=== PATIENT | female | born 1930 | race Caucasian/White ===

== ENCOUNTER 2018-08-17 10:57 | Inpatient (IN) | payer BC, OTHER ==
--- NOTE | 2018-08-17 11:23 | ED Physician Chart ---
ED Chief Complaint/HPI - Patient Information Date Seen:: 08/17/18 Time Seen:: 11:10 Chief Complaint:: Abdominal pain for 3 days. History of Present Illness:: Brought in by [id number] Justine because of abdominal pain for about 3 days. Pt is Citizen [place] speaking. Interpretation is provided by my nurse Cullen. Abdominal pain is characterized as constant, sharp and localized at RUQ. Pain can be aggravated with food ingestion. No fever. Pt had transient N/V yesterday with vomitus consists of gastric content. No hematemesis. Last BM yesterday morning that was slightly loose. No hematochezia or melena. No gross hematuria, dysuria,urinary frequency or urgency. No vaginal bleeding or discharge. Allergies:: Allergies Allergy/AdvReac Type Severity Reaction Status Date / Time No Known Allergies Allergy Verified 08/17/18 11:05 Vitals:: Vital Signs - 8 hr 08/17/18 10:57 Temp 97.2 F HR 82 RR 16 BP 118/43 O2 Sat % 98 Historian:: Patient Family MD/PCP:: Dr. Chase LMP:: Postmenopausal. Review:: Nurse's Note Reviewed ED Review of Systems - Review of Systems General/Constitutional: No fever, No chills, No weight loss, No weakness, No edema, No loss of appetite Skin: No rash, No bruising Head: No headache, No light-headedness Eyes: No loss of vision, No pain, No diplopia ENT: No nasal drainage, No sore throat Neck: No neck pain, No swelling, No stiffness Cardio Vascular: No chest pain Pulmonary: No SOB, No cough, No wheezing GI: Vomiting (transient), No diarrhea, Pain, No melena, No hematochezia, No constipation, No hematemesis G/U: No dysuria, No frequency, No hematuria Nanotechnology Engineering Technologist: No abnormal vaginal bleed Musculoskeletal: No bone or joint pain Endocrine: No polydipsia Psychiatric: No prior psych history Hematopoietic: No bruising, No lymphadenopathy Allergic/Immuno: No urticaria, No angioedema Neurological: No syncope, No focal symptoms, No weakness, No paresthesia, No headache ED Past Medical History - Past Medical History Past Medical History: HTN Social History: Non Smoker, No Alcohol, No Drug Use, , Other (lives with her son.) Employment:: Retired. Surgical History: None Psychiatricy History: None Medication: Reviewed Family Medical History - Family Member Mother History Unknown: Yes ED Physical Exam - Physical Examination General/Constitutional: Awake, Well-developed, well-nourished, Alert Other Gen/Cons comments:: Breathes comfortably, speaks clearly, but is in significant abdominal pain. Head: Atraumatic Eyes: Lids, conjuctiva normal, PERRL, EOMI Other Eyes comments:: anicteric sclera. Skin: Nl inspection, No ecchymosis, No lymphadenopathy ENMT: External ears, nose nl, Nasal exam nl, Oropharynx nl Neck: Nontender, Full ROM w/o pain, No JVD, No nuchal rigidity, No mass Respiratory: Nl effort/Exclusion, Clear to Auscultation Cardio Vascular: RRR, No murmur, gallop, rubs GI: No organomegaly, Normal BS's, Nondistended, No mass/bruits, No McBurney tenderness Other GI comments:: Obese but soft. Tenderness to palpation at RUQ. No R/G. +/- Dunlap's sign. Negative [place]'s and [place]'s signs. : No CVA tenderness Extremities: No edema Neuro/Psych: Alert/oriented, No focal deficits ED Labs/Radiology/EKG Results - Lab Results Results: Laboratory Tests 08/17/18 08/17/18 08/17/18 11:10 11:30 11:30 WBC 18.3 H RBC 4.47 Hgb 13.1 Hct 38.8 L MCV 86.8 MCH 29.3 MCHC Differential 33.7 RDW 12.7 Plt Count 248 MPV 7.0 Add Manual Diff YES PT 12.6 H INR 1.22 PTT (Actin FS) 28.3 Sodium Potassium Chloride Carbon Dioxide Anion Gap BUN Creatinine Est GFR ( Amer) Est GFR (Non-Af Amer) BUN/Creatinine Ratio Glucose Whole Bld Lactic Acid Calcium Total Bilirubin AST ALT Alkaline Phosphatase Total Protein Albumin Globulin Albumin/Globulin Ratio Amylase Lipase Urine Source CLEAN C Urine Color YELLOW Urine Clarity SLIGHT CLOUDY H Urine pH 5.5 Ur Specific [place] 1.025 Urine Protein TRACE Urine Glucose (UA) NEGATIVE Urine Ketones TRACE Urine Blood TRACE Urine Nitrate NEGATIVE Urine Bilirubin SMALL H Urine Urobilinogen 1.0 Ur Leukocyte Esterase SMALL H Urine RBC 0-2 Urine WBC 10-25 H Ur Epithelial Cells FEW Urine Bacteria 3+ H 08/17/18 08/17/18 11:30 11:40 WBC RBC Hgb Hct MCV MCH MCHC Differential RDW Plt Count MPV Add Manual Diff PT INR PTT (Actin FS) Sodium 133 L Potassium 3.0 L Chloride 97 L Carbon Dioxide 23.8 Anion Gap 15.2 BUN 38 H Creatinine 1.4 H Est GFR ( Amer) TNP Est GFR (Non-Af Amer) TNP BUN/Creatinine Ratio 27.1 Glucose 118 H Whole Bld Lactic Acid 3.95 H* Calcium 9.2 Total Bilirubin 1.0 AST 18 ALT 8 Alkaline Phosphatase 76 Total Protein 6.4 Albumin 3.7 Globulin 2.7 Albumin/Globulin Ratio 1.4 Amylase 20 L Lipase 3 L Urine Source Urine Color Urine Clarity Urine pH Ur Specific [place] Urine Protein Urine Glucose (UA) Urine Ketones Urine Blood Urine Nitrate Urine Bilirubin Urine Urobilinogen Ur Leukocyte Esterase Urine RBC Urine WBC Ur Epithelial Cells Urine Bacteria Laboratory Last Values WBC 18.3 Th/cmm (4.8-10.8) H 08/17/18 11:30 RBC 4.47 Mil/cmm (3.80-5.20) 08/17/18 11:30 Hgb 13.1 gm/dL (12-16) 08/17/18 11:30 Hct 38.8 % (41.0-60) L 08/17/18 11:30 MCV 86.8 fl (81-100) 08/17/18 11:30 MCH 29.3 pg (27.0-31.0) 08/17/18 11:30 MCHC Differential 33.7 pg (28.0-36.0) 08/17/18 11:30 RDW 12.7 % (11.5-20.0) 08/17/18 11:30 Plt Count 248 Th/cmm (150-400) 08/17/18 11:30 MPV 7.0 fl 08/17/18 11:30 Add Manual Diff YES 08/17/18 11:30 Band Neutrophils % 1 % (0-10) 08/17/18 11:30 Neutrophils (Manual) 90 % (40-80) H 08/17/18 11:30 Lymphocytes 7 % (20-50) L 08/17/18 11:30 Monocytes 2 % (2-10) 08/17/18 11:30 PT 12.6 SECONDS (9.5-11.5) H 08/17/18 11:30 INR 1.22 (0.5-1.4) 08/17/18 11:30 PTT (Actin FS) 28.3 SECONDS (26.0-38.0) 08/17/18 11:30 Sodium 133 mEq/L (136-145) L 08/17/18 11:30 Potassium 3.0 mEq/L (3.5-5.1) L 08/17/18 11:30 Chloride 97 mEq/L (98-107) L 08/17/18 11:30 Carbon Dioxide 23.8 mEq/L (21.0-31.0) 08/17/18 11:30 Anion Gap 15.2 (7.0-16.0) 08/17/18 11:30 BUN 38 mg/dL (7-25) H 08/17/18 11:30 Creatinine 1.4 mg/dL (0.6-1.2) H 08/17/18 11:30 Est GFR ( Amer) TNP 08/17/18 11:30 Est GFR (Non-Af Amer) TNP 08/17/18 11:30 BUN/Creatinine Ratio 27.1 08/17/18 11:30 Glucose 118 mg/dL (70-105) H 08/17/18 11:30 Whole Bld Lactic Acid 3.95 mmol/L (0.60-1.99) H* 08/17/18 11:40 Calcium 9.2 mg/dL (8.6-10.3) 08/17/18 11:30 Magnesium 2.0 mg/dL (1.9-2.7) 08/17/18 11:30 Total Bilirubin 1.0 mg/dL (0.3-1.0) 08/17/18 11:30 AST 18 U/L (13-39) 08/17/18 11:30 ALT 8 U/L (7-52) 08/17/18 11:30 Alkaline Phosphatase 76 U/L (34-104) 08/17/18 11:30 Total Protein 6.4 gm/dL (6.0-8.3) 08/17/18 11:30 Albumin 3.7 gm/dL (3.7-5.3) 08/17/18 11:30 Globulin 2.7 gm/dL 08/17/18 11:30 Albumin/Globulin Ratio 1.4 (1.0-1.8) 08/17/18 11:30 Amylase 20 U/L (29-103) L 08/17/18 11:30 Lipase 3 U/L (11-82) L 08/17/18 11:30 Urine Source CLEAN C 08/17/18 11:10 Urine Color YELLOW 08/17/18 11:10 Urine Clarity SLIGHT CLOUDY (CLEAR) H 08/17/18 11:10 Urine pH 5.5 (4.6 - 8.0) 08/17/18 11:10 Ur Specific [place] 1.025 (1.005-1.030) 08/17/18 11:10 Urine Protein TRACE mg/dL (NEGATIVE) 08/17/18 11:10 Urine Glucose (UA) NEGATIVE mg/dL (NEGATIVE) 08/17/18 11:10 Urine Ketones TRACE mg/dL (NEGATIVE) 08/17/18 11:10 Urine Blood TRACE (NEGATIVE) 08/17/18 11:10 Urine Nitrate NEGATIVE (NEGATIVE) 08/17/18 11:10 Urine Bilirubin SMALL (NEGATIVE) H 08/17/18 11:10 Urine Urobilinogen 1.0 E.U./dL (0.2 - 1.0) 08/17/18 11:10 Ur Leukocyte Esterase SMALL (NEGATIVE) H 08/17/18 11:10 Urine RBC 0-2 /hpf (0-5) 08/17/18 11:10 Urine WBC 10-25 /hpf (0-5) H 08/17/18 11:10 Ur Epithelial Cells FEW /lpf (FEW) 08/17/18 11:10 Urine Bacteria 3+ /hpf (NONE SEEN) H 08/17/18 11:10 Pending lab results: blood cultures, urine culture, repeat lactic acid level. - Radiology Results Results: Preliminary abdominal sonographic report: Many gall stone. No findings c/w acute cholecystitis. Official report is pending. ED Septic Shock - . Is Septic Shock (SBP<90, OR Lactate>4 mmol\L) present?: No - <6hrs of presentation: Vital Signs: Vital Signs - 8 hr 08/17/18 10:57 Temp 97.2 F HR 82 RR 16 BP 118/43 O2 Sat % 98 ED Reassessment (Disposition) - Reassessment Reassessment:: 1245 Pt has been repeatedly evaluated. Pt feels more comfortably and does not need more pain control. Sonographic and available lab findings have been reviewed with pt. Management plan has been discussed. Interpretation is provided by her daughter Brittnee (? sp) per pt's request. 1425 Case was discussed with Dr. Coronel with pertinent info reviewed. Pt is to be admitted to [facility] under his care. Reassessment Condition:: Improved - Diagnosis Diagnosis:: Abdominal pain c/w biliary colic. Doubt early acute cholecystitis. Urinary tract infection with early sepsis. Lactic acidosis. Renal insufficiency. Hypokalemia. Mild hyperglycemia. - Patient Disposition Admitted to:: Telemetry Admitting Medical Physician:: Sanchez Coronel Time:: 14:30 Condition at Disposition:: Stable
[2018-08-17] MEDS ORDERED: Morphine Sulfate 2 mg/mL 1mL Syr IV STA (11:33)
[2018-08-17] MEDS ORDERED: Morphine Sulfate 2 mg/mL 1mL Syr ONE (11:42)
[2018-08-17 11:49] LABS: URINE SOURCE CLEAN C
[2018-08-17 11:55] LABS: BASOPHILE ABSOLUTE 0.2 Th/cumm (0-0.2); HEMATOCRIT 38.8 % (41.0-60); HEMOGLOBIN 13.1 gm/dL (12-16); LYMPHOCYTE ABSOLUTE 0.9 Th/cmm (1.5-3.0); MEAN CELL VOLUME 86.8 fl (81-100); MEAN CORPUSCULAR HEMOGLOBIN 29.3 pg (27.0-31.0); MEAN CORPUSCULAR HGB CONC 33.7 pg (28.0-36.0); MONOCYTE ABSOLUTE 0.7 Th/cmm (0.3-1.0); NEUTROPHILE ABSOLUTE 16.5 Th/cmm (1.8-8.0); PLATELET COUNT 248 Th/cmm (150-400); RED BLOOD COUNT 4.47 Mil/cmm (3.80-5.20); RED CELL DISTRIBUTION WIDTH 12.7 % (11.5-20.0)
[2018-08-17 11:58] LABS: URINE BILIRUBIN SMALL (NEGATIVE); URINE BLOOD TRACE (NEGATIVE); URINE GLUCOSE (UA) NEGATIVE (NEGATIVE); URINE KETONE TRACE mg/dL (NEGATIVE); URINE LEUKOCYTE ESTERASE SMALL (NEGATIVE); URINE MICROSCOPIC INDICATED? YES; URINE NITRATE NEGATIVE (NEGATIVE); URINE PH 5.5 (4.6 - 8.0); URINE PROTEIN TRACE mg/dL (NEGATIVE)
[2018-08-17 12:02] LABS: WHITE BLOOD COUNT 18.3 Th/cmm (4.8-10.8)
[2018-08-17 12:03] LABS: INR 1.22 (0.5-1.4); PROTHROMBIN TIME (TEST) 12.6 SECONDS (9.5-11.5)
[2018-08-17 12:11] LABS: URINE CLARITY SLIGHT CLOUDY (CLEAR); URINE COLOR YELLOW
[2018-08-17 12:18] LABS: URINE RBC 0-2 /hpf (0-5)
[2018-08-17 12:20] LABS: URINE BACTERIA 3+ /hpf (NONE SEEN); URINE EPITHELIAL CELLS FEW /lpf (FEW)
[2018-08-17 12:22] LABS: ALB/GLOB RATIO 1.4 (1.0-1.8); ALBUMIN 3.7 gm/dL (3.7-5.3); ALKALINE PHOSPHATASE 76 U/L (34-104); AMYLASE SERUM 20 U/L (29-103); ANION GAP 15.2 (7.0-16.0); BUN - UREA NITROGEN 38 mg/dL (7-25); CALCIUM SERUM 9.2 mg/dL (8.6-10.3); CARBON DIOXIDE 23.8 mEq/L (21.0-31.0); CHLORIDE 97 mEq/L (98-107); CREATININE - SERUM 1.4 mg/dL (0.6-1.2); GLUCOSE 118 mg/dL (70-105); LIPASE 3 U/L (11-82); SGOT 18 U/L (13-39); SGPT/ALT 8 U/L (7-52); SODIUM SERUM 133 mEq/L (136-145); TOTAL PROTEIN,SERUM 6.4 gm/dL (6.0-8.3)
[2018-08-17] MEDS ORDERED: Potassium Chloride 20 mEq ER Tab PO ONE ×2 (12:43→12:52)
[2018-08-17 12:52] LABS: BAND NEUTROPHILE 1 % (0-10); LYMPHOCYTE 7 % (20-50); NEUTROPHILS 90 % (40-80)
[2018-08-17] MEDS ORDERED: Piperacillin Sodium/Tazobact 3.375 gm Vial IV ONE (12:52)
[2018-08-17 12:53] LABS: MONOCYTE 2 % (2-10)
--- NOTE | 2018-08-17 14:07 | Diagnostic Imaging Report ---
Abdominal ultrasound HISTORY: Pain The liver appears enlarged. No focal lesions. There is poor delineation of the gallbladder which appears to exhibit multiple intraluminal echogenic densities. Findings suggest changes of cholelithiasis. The common bile duct could not be clearly visualized. No intrahepatic biliary dilatation. The pancreas cannot be skull seen due to bowel gas. The right kidney appears normal. The left kidney is normal in size. There appears to be an approximate 2.0 cm sonolucent lesion in the lateral portion of the kidney consistent with a cyst. Spleen is poorly delineated. No other retroperitoneal or intra-abdominal abnormalities. IMPRESSION: 1. Limited/suboptimal exam due to considerable bowel gas 2. Findings consistent with cholelithiasis 3. Hepatomegaly
[2018-08-17] MEDS ORDERED: guaiFENesin 200 MG/10 ML UDC PO PRN (15:10)
[2018-08-17] MEDS: D5-0.45NS 1,000 ML IV SCH (15:53)
--- NOTE | 2018-08-17 16:23 | History & Physical ---
ADMIT DATE: 08/17/2018 CHIEF COMPLAINT: Abdominal pain x 3 days. HISTORY OF PRESENT ILLNESS: This is an 88-year-old female with history of hypertension, obesity, admitted from home secondary to pain in the bilateral flank and pain with urination, not feeling well, complaint of fever as well. The patient was seen in the Emergency Room and noted to have elevated lactic acid as well as white count, a daughter at the bedside who speaks [place] and the patient was seen with skull chopper. PAST MEDICAL HISTORY: As mentioned in the history of present illness. PAST SURGICAL HISTORY: Denies surgeries. ALLERGIES: No known drug allergies. MEDICATIONS: Hydrochlorothiazide, lisinopril, Naprosyn, nifedipine, and metoprolol. FAMILY HISTORY: Noncontributory. SOCIAL HISTORY: The patient is a nonsmoker, nondrinker, no intravenous drug use. The patient is a homemaker with . REVIEW OF SYSTEMS: GENERAL: Complains of not feeling well. HEENT: No blurred vision or pain. NECK: Supple. LUNGS: No chronic obstructive pulmonary disease or asthma. HEART: The patient with hypertension. Denies coronary artery disease or stroke. ABDOMEN: As mentioned in history of present illness. GENITOURINARY: Increased frequency. NEUROLOGIC: No headache, seizure, or syncope. PSYCHIATRIC: As above. ENDOCRINE: . PHYSICAL EXAMINATION: VITAL SIGNS: Blood pressure 115/50, respirations 16, pulse 72, temperature 97.2. GENERAL: Elderly female, appears her stated age, mildly obese. NECK: Supple. No mass. LUNGS: Equal breath sounds, few rhonchi. HEART: Regular rate and rhythm with systolic ejection murmur. ABDOMEN: Soft, globular. EXTREMITIES: Positive excoriation. NEUROLOGIC: Limited. LABORATORY DATA: WBC 18, hemoglobin 13, platelets 248, INR 1.2. Sodium 132, potassium 3.0, BUN 30, creatinine 1.4. Lactic acid 0.9, blood sugar 118. LFTs within normal range. WBC 25, 3+ bacteria. ASSESSMENT AND PLAN: Urinary tract infection, sepsis, leukocytosis, hyponatremia, hypokalemia, renal insufficiency, hypertension, obesity, and gallstone. Continue the patient on IV hydration and IV antibiotic. We will follow the patient's urine culture, blood culture has been performed. Abdominal ultrasound was also performed. We will follow the results. We will replace the patient's electrolyte abnormalities. Continue with current care. We will monitor the patient closely. [facility]# [id number]
[2018-08-17 16:35] VITALS: BP 130/70
[2018-08-17] MEDS: Heparin Sod 5,000Units/ML 5,000 UNITS/ML VIAL SUBQ SCH (20:38)
[2018-08-18] MEDS: D5-0.45NS 1,000 ML IV SCH ×2 (03:45→15:35)
[2018-08-18 06:39] LABS: EOSINOPHILE ABSOLUTE 0.2 Th/cmm (0.1-0.4); HEMATOCRIT 31.2 % (41.0-60); HEMOGLOBIN 10.9 gm/dL (12-16); LYMPHOCYTE ABSOLUTE 0.6 Th/cmm (1.5-3.0); MEAN CELL VOLUME 86.1 fl (81-100); MEAN CORPUSCULAR HEMOGLOBIN 30.1 pg (27.0-31.0); MEAN CORPUSCULAR HGB CONC 34.9 pg (28.0-36.0); MEAN PLATELET VOLUME 7.7 fl; MONOCYTE ABSOLUTE 0.3 Th/cmm (0.3-1.0); NEUTROPHILE ABSOLUTE 11.9 Th/cmm (1.8-8.0); PLATELET COUNT 203 Th/cmm (150-400); RED BLOOD COUNT 3.62 Mil/cmm (3.80-5.20); RED CELL DISTRIBUTION WIDTH 12.6 % (11.5-20.0)
[2018-08-18 07:04] LABS: BUN - UREA NITROGEN 25 mg/dL (7-25); CALCIUM SERUM 8.1 mg/dL (8.6-10.3); CARBON DIOXIDE 21.3 mEq/L (21.0-31.0); CHLORIDE 103 mEq/L (98-107); CREATININE - SERUM 0.7 mg/dL (0.6-1.2); GLUCOSE 136 mg/dL (70-105); MAGNESIUM 1.9 mg/dL (1.9-2.7); POTASSIUM SERUM 3.3 mEq/L (3.5-5.1); SODIUM SERUM 132 mEq/L (136-145)
[2018-08-18 07:59] LABS: BAND NEUTROPHILE 0 % (0-10); BASOPHIL 0 % (0-3); EOSINOPHIL 2 % (0-5); LYMPHOCYTE 5 % (20-50); MONOCYTE 4 % (2-10); NEUTROPHILS 89 % (40-80)
[2018-08-18] MEDS: Heparin Sod 5,000Units/ML 5,000 UNITS/ML VIAL SUBQ SCH ×2 (08:14→20:16)
[2018-08-18] MEDS ORDERED: Potassium Chloride 20 mEq ER Tab PO ONE (10:11)
--- NOTE | 2018-08-18 11:42 | Internal Medicine Prog Note ---
Internal Medicine Subjective - Subjective Patient seen and examined:: with staff, chart reviewed Patient is:: awake, verbal, interactive, in bed Patient Complaints of:: congestion Per staff patient has:: no adverse event, no episodes of fall, poor appetite, tolerating meds Internal Medicine Objective - Results Result Diagrams: 08/18/18 05:50 08/18/18 05:50 Recent Labs: Laboratory Last Values WBC 13.0 Th/cmm (4.8-10.8) H D 08/18/18 05:50 RBC 3.62 Mil/cmm (3.80-5.20) L 08/18/18 05:50 Hgb 10.9 gm/dL (12-16) L 08/18/18 05:50 Hct 31.2 % (41.0-60) L D 08/18/18 05:50 MCV 86.1 fl (81-100) 08/18/18 05:50 MCH 30.1 pg (27.0-31.0) 08/18/18 05:50 MCHC Differential 34.9 pg (28.0-36.0) 08/18/18 05:50 RDW 12.6 % (11.5-20.0) 08/18/18 05:50 Plt Count 203 Th/cmm (150-400) 08/18/18 05:50 MPV 7.7 fl 08/18/18 05:50 Add Manual Diff YES 08/18/18 05:50 Band Neutrophils % 0 % (0-10) 08/18/18 05:50 Neutrophils (Manual) 89 % (40-80) H 08/18/18 05:50 Lymphocytes 5 % (20-50) L 08/18/18 05:50 Monocytes 4 % (2-10) 08/18/18 05:50 Eosinophils 2 % (0-5) 08/18/18 05:50 Basophils 0 % (0-3) 08/18/18 05:50 PT 12.6 SECONDS (9.5-11.5) H 08/17/18 11:30 INR 1.22 (0.5-1.4) 08/17/18 11:30 PTT (Actin FS) 28.3 SECONDS (26.0-38.0) 08/17/18 11:30 Sodium 132 mEq/L (136-145) L 08/18/18 05:50 Potassium 3.3 mEq/L (3.5-5.1) L 08/18/18 05:50 Chloride 103 mEq/L (98-107) 08/18/18 05:50 Carbon Dioxide 21.3 mEq/L (21.0-31.0) 08/18/18 05:50 Anion Gap 11.0 (7.0-16.0) 08/18/18 05:50 BUN 25 mg/dL (7-25) 08/18/18 05:50 Creatinine 0.7 mg/dL (0.6-1.2) 08/18/18 05:50 Est GFR ( Amer) TNP 08/18/18 05:50 Est GFR (Non-Af Amer) TNP 08/18/18 05:50 BUN/Creatinine Ratio 35.7 08/18/18 05:50 Glucose 136 mg/dL (70-105) H 08/18/18 05:50 Whole Bld Lactic Acid 3.51 mmol/L (0.60-1.99) H* 08/17/18 13:30 Calcium 8.1 mg/dL (8.6-10.3) L 08/18/18 05:50 Phosphorus 2.0 mg/dL (2.5-5.0) L 08/18/18 05:50 Magnesium 1.9 mg/dL (1.9-2.7) 08/18/18 05:50 Total Bilirubin 1.0 mg/dL (0.3-1.0) 08/17/18 11:30 AST 18 U/L (13-39) 08/17/18 11:30 ALT 8 U/L (7-52) 08/17/18 11:30 Alkaline Phosphatase 76 U/L (34-104) 08/17/18 11:30 B-Natriuretic Peptide 272.0 pg/mL (5.0-100.0) H 08/18/18 05:50 Total Protein 6.4 gm/dL (6.0-8.3) 08/17/18 11:30 Albumin 3.7 gm/dL (3.7-5.3) 08/17/18 11:30 Globulin 2.7 gm/dL 08/17/18 11:30 Albumin/Globulin Ratio 1.4 (1.0-1.8) 08/17/18 11:30 Amylase 20 U/L (29-103) L 08/17/18 11:30 Lipase 3 U/L (11-82) L 08/17/18 11:30 TSH 1.60 uIU/ml (0.34-5.60) 08/18/18 05:50 Urine Source CLEAN C 08/17/18 11:10 Urine Color YELLOW 08/17/18 11:10 Urine Clarity SLIGHT CLOUDY (CLEAR) H 08/17/18 11:10 Urine pH 5.5 (4.6 - 8.0) 08/17/18 11:10 Ur Specific [place] 1.025 (1.005-1.030) 08/17/18 11:10 Urine Protein TRACE mg/dL (NEGATIVE) 08/17/18 11:10 Urine Glucose (UA) NEGATIVE mg/dL (NEGATIVE) 08/17/18 11:10 Urine Ketones TRACE mg/dL (NEGATIVE) 08/17/18 11:10 Urine Blood TRACE (NEGATIVE) 08/17/18 11:10 Urine Nitrate NEGATIVE (NEGATIVE) 08/17/18 11:10 Urine Bilirubin SMALL (NEGATIVE) H 08/17/18 11:10 Urine Urobilinogen 1.0 E.U./dL (0.2 - 1.0) 08/17/18 11:10 Ur Leukocyte Esterase SMALL (NEGATIVE) H 08/17/18 11:10 Urine RBC 0-2 /hpf (0-5) 08/17/18 11:10 Urine WBC 10-25 /hpf (0-5) H 08/17/18 11:10 Ur Epithelial Cells FEW /lpf (FEW) 08/17/18 11:10 Urine Bacteria 3+ /hpf (NONE SEEN) H 08/17/18 11:10 - Physical Exam Vitals and I&O: Vital Signs Temp 96.2 F 08/18/18 08:00 Pulse 110 08/18/18 08:14 Resp 18 08/18/18 08:00 BP 127/58 08/18/18 08:14 Pulse Ox 96 08/18/18 08:00 Intake & Output 08/17/18 08/18/18 08/18/18 18:59 06:59 18:59 Intake Total 1684.333 720 Output Total 3 Balance 1684.333 717 Weight (lbs) 73.391 kg 72.303 kg Intake: Intake, IV Amount 1334.333 720 Cefepime 1 gm In Dextrose 50 5% 50 ml @ 100 mls/hr IV Q12H [facility] Rx#:[id number] D5-0.45NS 1,000 ml @ 80 229.333 720 mls/hr IV .[id number] [facility] Rx #:[id number] Piperacillin Sodium/ 50 Tazobact 3.375 gm In Sodium Chloride 0.9% 50 ml @ 100 mls/hr IV X1 ONE Rx#:[id number] Potassium Chloride 10 meq 1005 In Sodium Chloride 0.9% 1,000 ml @ 1000 mls/hr IV .[id number] [facility] Rx#:[id number] Oral 350 Output: Urine 3 Other: # Voids 3 2 # Bowel Movements 1 1 Weight Source Bedscale Bedscale Active Medications: Current Medications Acetaminophen (Tylenol) 650 mg PO Q4H PRN PRN Reason: Pain Or Fever above 101 Stop: 10/16/18 15:09 Albuterol Sulfate (Albuterol 2.5mg/3ml Neb Ud) 2.5 mg HHN Q2HRT PRN PRN Reason: Shortness of Breath or Wheeze Stop: 10/16/18 15:08 Guaifenesin (Robitussin) 200 mg PO Q4HR PRN PRN Reason: Cough or Congestion Stop: 10/16/18 15:09 Heparin Sodium (Porcine) (Heparin) 5,000 units SUBQ Q12HR [facility] Stop: 10/16/18 20:59 Last Admin: 08/18/18 08:14 Dose: 5,000 units Cefepime HCl 1 gm/ Dextrose 50 mls @ 100 mls/hr IV Q12H [facility] Stop: 10/16/18 15:59 Last Admin: 08/18/18 03:44 Dose: 100 mls/hr Dextrose/Sodium Chloride (D5-0.45ns) 1,000 mls @ 80 mls/hr IV .[id number] [facility] Stop: 10/16/18 15:14 Last Admin: 08/18/18 03:45 Dose: 80 mls/hr Potassium Phosphate 30 mmole/ (Sodium Chloride) 260 mls @ 65 mls/hr IV X1 ONE Stop: 08/18/18 15:39 Metoprolol Succinate (Toprol Xl) 100 mg PO DAILY [facility] Stop: 10/17/18 08:59 Last Admin: 08/18/18 08:14 Dose: 100 mg Nitroglycerin (Nitrostat) 0.4 mg SL Q5MIN PRN PRN Reason: Chest Pain Stop: 10/16/18 15:09 Ondansetron HCl (Zofran) 4 mg IV Q8H PRN PRN Reason: Nausea / Vomiting Stop: 10/16/18 15:09 Zolpidem Tartrate (Ambien) 10 mg PO HS PRN PRN Reason: Insomnia Stop: 10/16/18 15:08 Last Admin: 08/17/18 20:39 Dose: 10 mg General: alert HEENT: NC/AT, PERRLA, EOMI Neck: Supple, No JVD Lungs: congested, rales Cardiovascular: RRR, Normal S1, Normal S2, with murmur Abdomen: soft, globular, positive bowel sound Extremities: excoriation Internal Medicine Assmt/Plan - Assessment Assessment: ASSESSMENT AND PLAN: Urinary tract infection, sepsis, leukocytosis, hyponatremia, hypokalemia, renal insufficiency, hypertension, obesity, and gallstone. hypophosphatemia, - Plan Plan: PLAN: Continue the patient on IV hydration and IV antibiotic. We will follow the patient's urine culture, blood culture has been performed. Abdominal ultrasound was also performed. We will follow the results. We will replace the patient's electrolyte abnormalities. Continue with current care. We will monitor the patient closely.
[2018-08-18] MEDS ORDERED: Potassium Phosphate 30 MMOLE in Sodium Chloride 0.9% 250 ML IV ONE (12:00)
[2018-08-18] MEDS: Albuterol Nebulizer 2.5mg/3mL HHN PRN (17:54)
[2018-08-19] MEDS: Albuterol Nebulizer 2.5mg/3mL HHN PRN ×2 (02:41→06:47)
[2018-08-19 05:52] LABS: ANION GAP 11.4 (7.0-16.0); BUN - UREA NITROGEN 13 mg/dL (7-25); CALCIUM SERUM 8.3 mg/dL (8.6-10.3); CARBON DIOXIDE 21.9 mEq/L (21.0-31.0); CHLORIDE 101 mEq/L (98-107); CREATININE - SERUM 0.5 mg/dL (0.6-1.2); GLUCOSE 128 mg/dL (70-105); MAGNESIUM 1.8 mg/dL (1.9-2.7); PHOSPHOROUS 2.3 mg/dL (2.5-5.0); POTASSIUM SERUM 4.3 mEq/L (3.5-5.1); SODIUM SERUM 130 mEq/L (136-145)
[2018-08-19] MEDS: Heparin Sod 5,000Units/ML 5,000 UNITS/ML VIAL SUBQ SCH ×2 (08:42→20:31)
[2018-08-19] MEDS: D5-0.45NS 1,000 ML IV SCH (10:40)
[2018-08-19] MEDS ORDERED: Mag Sulfate 2gm/50mL Premix 2 GM/50 ML BAG IV ONE (12:16)
--- NOTE | 2018-08-19 12:17 | Internal Medicine Prog Note ---
Internal Medicine Subjective - Subjective Patient seen and examined:: with staff, chart reviewed Patient is:: awake, verbal, interactive, in bed Patient Complaints of:: congestion Per staff patient has:: no adverse event, no episodes of fall, poor appetite, tolerating meds Internal Medicine Objective - Results Result Diagrams: 08/18/18 05:50 08/19/18 05:05 Recent Labs: Laboratory Last Values WBC 13.0 Th/cmm (4.8-10.8) H D 08/18/18 05:50 RBC 3.62 Mil/cmm (3.80-5.20) L 08/18/18 05:50 Hgb 10.9 gm/dL (12-16) L 08/18/18 05:50 Hct 31.2 % (41.0-60) L D 08/18/18 05:50 MCV 86.1 fl (81-100) 08/18/18 05:50 MCH 30.1 pg (27.0-31.0) 08/18/18 05:50 MCHC Differential 34.9 pg (28.0-36.0) 08/18/18 05:50 RDW 12.6 % (11.5-20.0) 08/18/18 05:50 Plt Count 203 Th/cmm (150-400) 08/18/18 05:50 MPV 7.7 fl 08/18/18 05:50 Add Manual Diff YES 08/18/18 05:50 Band Neutrophils % 0 % (0-10) 08/18/18 05:50 Neutrophils (Manual) 89 % (40-80) H 08/18/18 05:50 Lymphocytes 5 % (20-50) L 08/18/18 05:50 Monocytes 4 % (2-10) 08/18/18 05:50 Eosinophils 2 % (0-5) 08/18/18 05:50 Basophils 0 % (0-3) 08/18/18 05:50 PT 12.6 SECONDS (9.5-11.5) H 08/17/18 11:30 INR 1.22 (0.5-1.4) 08/17/18 11:30 PTT (Actin FS) 28.3 SECONDS (26.0-38.0) 08/17/18 11:30 Sodium 130 mEq/L (136-145) L 08/19/18 05:05 Potassium 4.3 mEq/L (3.5-5.1) 08/19/18 05:05 Chloride 101 mEq/L (98-107) 08/19/18 05:05 Carbon Dioxide 21.9 mEq/L (21.0-31.0) 08/19/18 05:05 Anion Gap 11.4 (7.0-16.0) 08/19/18 05:05 BUN 13 mg/dL (7-25) 08/19/18 05:05 Creatinine 0.5 mg/dL (0.6-1.2) L 08/19/18 05:05 Est GFR ( Amer) TNP 08/19/18 05:05 Est GFR (Non-Af Amer) TNP 08/19/18 05:05 BUN/Creatinine Ratio 26.0 08/19/18 05:05 Glucose 128 mg/dL (70-105) H 08/19/18 05:05 Whole Bld Lactic Acid 3.51 mmol/L (0.60-1.99) H* 08/17/18 13:30 Calcium 8.3 mg/dL (8.6-10.3) L 08/19/18 05:05 Phosphorus 2.3 mg/dL (2.5-5.0) L 08/19/18 05:05 Magnesium 1.8 mg/dL (1.9-2.7) L 08/19/18 05:05 Total Bilirubin 1.0 mg/dL (0.3-1.0) 08/17/18 11:30 AST 18 U/L (13-39) 08/17/18 11:30 ALT 8 U/L (7-52) 08/17/18 11:30 Alkaline Phosphatase 76 U/L (34-104) 08/17/18 11:30 B-Natriuretic Peptide 272.0 pg/mL (5.0-100.0) H 08/18/18 05:50 Total Protein 6.4 gm/dL (6.0-8.3) 08/17/18 11:30 Albumin 3.7 gm/dL (3.7-5.3) 08/17/18 11:30 Globulin 2.7 gm/dL 08/17/18 11:30 Albumin/Globulin Ratio 1.4 (1.0-1.8) 08/17/18 11:30 Amylase 20 U/L (29-103) L 08/17/18 11:30 Lipase 3 U/L (11-82) L 08/17/18 11:30 TSH 1.60 uIU/ml (0.34-5.60) 08/18/18 05:50 Urine Source CLEAN C 08/17/18 11:10 Urine Color YELLOW 08/17/18 11:10 Urine Clarity SLIGHT CLOUDY (CLEAR) H 08/17/18 11:10 Urine pH 5.5 (4.6 - 8.0) 08/17/18 11:10 Ur Specific [place] 1.025 (1.005-1.030) 08/17/18 11:10 Urine Protein TRACE mg/dL (NEGATIVE) 08/17/18 11:10 Urine Glucose (UA) NEGATIVE mg/dL (NEGATIVE) 08/17/18 11:10 Urine Ketones TRACE mg/dL (NEGATIVE) 08/17/18 11:10 Urine Blood TRACE (NEGATIVE) 08/17/18 11:10 Urine Nitrate NEGATIVE (NEGATIVE) 08/17/18 11:10 Urine Bilirubin SMALL (NEGATIVE) H 08/17/18 11:10 Urine Urobilinogen 1.0 E.U./dL (0.2 - 1.0) 08/17/18 11:10 Ur Leukocyte Esterase SMALL (NEGATIVE) H 08/17/18 11:10 Urine RBC 0-2 /hpf (0-5) 08/17/18 11:10 Urine WBC 10-25 /hpf (0-5) H 08/17/18 11:10 Ur Epithelial Cells FEW /lpf (FEW) 08/17/18 11:10 Urine Bacteria 3+ /hpf (NONE SEEN) H 08/17/18 11:10 - Physical Exam Vitals and I&O: Vital Signs Temp 97.2 F 08/19/18 11:34 Pulse 87 08/19/18 11:34 Resp 18 08/19/18 11:55 BP 117/72 08/19/18 11:34 Pulse Ox 100 08/19/18 11:34 Intake & Output 08/18/18 08/19/18 08/19/18 18:59 06:59 18:59 Intake Total 2112.205 8338 Output Total 3 Balance 5554.671 5233 Weight (lbs) 72.575 kg 72.575 kg 72.348 kg Intake: Intake, IV Amount 863.747 9617 Cefepime 1 gm In Dextrose 50 50 5% 50 ml @ 100 mls/hr IV Q12H [facility] Rx#:[id number] D5-0.45NS 1,000 ml @ 80 741.851 0982 mls/hr IV .[id number] [facility] Rx #:[id number] Oral 300 250 Tube Feeding 150 Output: Urine 3 Other: # Voids 6 3 # Bowel Movements 0 0 Weight Source Bedscale Bedscale Bedscale Active Medications: Current Medications Acetaminophen (Tylenol) 650 mg PO Q4H PRN PRN Reason: Pain Or Fever above 101 Stop: 10/16/18 15:09 Albuterol Sulfate (Albuterol 2.5mg/3ml Neb Ud) 2.5 mg HHN Q2HRT PRN PRN Reason: Shortness of Breath or Wheeze Stop: 10/16/18 15:08 Last Admin: 08/19/18 06:47 Dose: 2.5 mg Guaifenesin (Robitussin) 200 mg PO Q4HR PRN PRN Reason: Cough or Congestion Stop: 10/16/18 15:09 Heparin Sodium (Porcine) (Heparin) 5,000 units SUBQ Q12HR [facility] Stop: 10/16/18 20:59 Last Admin: 08/19/18 08:42 Dose: 5,000 units Cefepime HCl 1 gm/ Dextrose 50 mls @ 100 mls/hr IV Q12H [facility] Stop: 10/16/18 15:59 Last Infusion: 08/19/18 03:42 Dose: Infused Dextrose/Sodium Chloride (D5-0.45ns) 1,000 mls @ 80 mls/hr IV .[id number] [facility] Stop: 10/16/18 15:14 Last Admin: 08/19/18 10:40 Dose: 80 mls/hr Metoprolol Succinate (Toprol Xl) 100 mg PO DAILY [facility] Stop: 10/17/18 08:59 Last Admin: 08/19/18 08:37 Dose: 100 mg Nitroglycerin (Nitrostat) 0.4 mg SL Q5MIN PRN PRN Reason: Chest Pain Stop: 10/16/18 15:09 Ondansetron HCl (Zofran) 4 mg IV Q8H PRN PRN Reason: Nausea / Vomiting Stop: 10/16/18 15:09 Zolpidem Tartrate (Ambien) 10 mg PO HS PRN PRN Reason: Insomnia Stop: 10/16/18 15:08 Last Admin: 08/17/18 20:39 Dose: 10 mg General: alert HEENT: NC/AT, PERRLA, EOMI Neck: Supple, No JVD Lungs: congested, rales Cardiovascular: RRR, Normal S1, Normal S2, with murmur Abdomen: soft, globular, positive bowel sound Extremities: excoriation Internal Medicine Assmt/Plan - Assessment Assessment: ASSESSMENT AND PLAN: Urinary tract infection, sepsis, leukocytosis, hyponatremia, hypokalemia, renal insufficiency, hypertension, obesity, and gallstone. hypophosphatemia, - Plan Plan: PLAN: Continue the patient on IV hydration and IV antibiotic. We will follow the patient's urine culture, blood culture has been performed. Abdominal ultrasound was also performed. We will follow the results. We will replace the patient's electrolyte abnormalities. Continue with current care. We will monitor the patient closely. Nutritional Asmnt/Malnutr-PDOC - Dietary Evaluation Malnutrition Findings (Please click <Entered> for more info): Nutritional Asmnt/Malnutrition Start: 08/18/18 14: 41 Text: Status: Complete Freq: Protocol: Document 08/18/18 14:41 LCHENG (Rec: 08/18/18 14:49 LCHENG [email or web address]) Nutritional Asmnt/Malnutrition Patient General Information Nutritional Screening High Risk Diagnosis abdominal pain, UTI/sepsis Pertinent Medical Hx/Surgical Hx HTN Subjective Information Pt seen sleeping in bed at time of visit. CURB SETTER reported pt ate 20% of breakfast this morning, and 50% of lunch. Pt is able to eat by herself slowly. Current Diet Order/ Nutrition Support fat controlled 50gm Pertinent Medications D5-0.45ns, potassium phosphate Pertinent Labs 08/18 Na 132, K 3.3, glucose 136, Ca 8.1, phos 2.0 Nutritional Hx/Data Height 1.42 m Height (Calculated Centimeters) 142.2 Current Weight (lbs) 72.121 kg Weight (Calculated Kilograms) 72.1 Weight (Calculated Grams) 82560.2 [place] Body Weight 92 Body Mass Index (BMI) 35.6 Weight Status Obese GI Symptoms GI Symptoms None Last BM 08/18 x 3 Difficult in: None Skin Integrity/Comment: intact Current %PO Fair (50-74%) Estimated Nutritional Goals BEE in Kcals: Adj wt of IBW Calories/Kcals/Kg 25-30 adj wt 49kg Kcals Calculated 2192-7568 Protein: Adj wt of IBW Protein g/k Protein Calculated 49 Fluid: ml 1225-1470ml (1ml/kcal) Nutritional Problem 1. Problem Problem altered nutrition related labs Etiology electrolytes imbalance Signs/Symptoms: Na 132, K 3.3, Ca 8.1, phos 2. 0 Malnutrition Alert Is there a minimum of two criteria No selected? Query Text:Check all the applicable criteria. A minimum of two criteria are recommended for diagnosis of either severe or non-severe malnutrition. Malnutrition Related to Morbid Obesity Malnutrition related to morbid obesity No Intervention/Recommendation Comments 1. Continue with fat controlled diet as ordered. MD to replace electrolytes as needed. Consider adding nutrition supplements if PO intake inadequte. Assist pt with meals as needed. 2. Monitor PO intake, wt, labs and skin integrity 3. F/U as high risk in 2-3 days Expected Outcomes/Goals Expected Outcomes/Goals 1. PO intake to meet at least 75% of nutritional needs. 2. Wt stability, skin to remain intact, labs to approach WNL.
[2018-08-19] MEDS ORDERED: Sodium Phosphate 20 MMOLE in Sodium Chloride 0.9% 250 ML IV ONE (13:00)
[2018-08-20] MEDS: Albuterol Nebulizer 2.5mg/3mL HHN PRN ×2 (05:20→07:19)
[2018-08-20 06:35] LABS: HEMOGLOBIN 12.2 gm/dL (12-16); MONOCYTE ABSOLUTE 0.9 Th/cmm (0.3-1.0)
[2018-08-20 06:39] LABS: % BASOPHILS 2.4 % (0.0-2.0); % EOSINOPHILS 4.7 % (0.0-5.0); % LYMPHOCYTES 11.3 % (20.0-50.0); % MONOCYTES 8.5 % (2.0-10.0); % NEUTROPHILS 73.1 % (40.0-80.0); BASOPHILE ABSOLUTE 0.3 Th/cumm (0-0.2); EOSINOPHILE ABSOLUTE 0.5 Th/cmm (0.1-0.4); HEMATOCRIT 35.9 % (41.0-60); LYMPHOCYTE ABSOLUTE 1.2 Th/cmm (1.5-3.0); MEAN CELL VOLUME 86.7 fl (81-100); MEAN CORPUSCULAR HEMOGLOBIN 29.5 pg (27.0-31.0); MEAN PLATELET VOLUME 7.7 fl; PLATELET COUNT 246 Th/cmm (150-400); RED BLOOD COUNT 4.14 Mil/cmm (3.80-5.20); RED CELL DISTRIBUTION WIDTH 12.4 % (11.5-20.0); WHITE BLOOD COUNT 10.9 Th/cmm (4.8-10.8)
[2018-08-20] MEDS: D5-0.45NS 1,000 ML IV SCH (06:44)
[2018-08-20 06:53] LABS: ANION GAP 10.6 (7.0-16.0); BUN - UREA NITROGEN 8 mg/dL (7-25); CALCIUM SERUM 8.4 mg/dL (8.6-10.3); CARBON DIOXIDE 23.3 mEq/L (21.0-31.0); CHLORIDE 104 mEq/L (98-107); CREATININE - SERUM 0.5 mg/dL (0.6-1.2); GLUCOSE 118 mg/dL (70-105); MAGNESIUM 2.1 mg/dL (1.9-2.7); PHOSPHOROUS 3.1 mg/dL (2.5-5.0); POTASSIUM SERUM 3.9 mEq/L (3.5-5.1); SODIUM SERUM 134 mEq/L (136-145)
[2018-08-20] MEDS: Heparin Sod 5,000Units/ML 5,000 UNITS/ML VIAL SUBQ SCH ×2 (08:46→20:52)
--- NOTE | 2018-08-20 13:21 | Discharge Summary ---
DATE OF DISCHARGE: 08/20/2018 CHIEF COMPLAINT: Abdominal pain x 3 days. FINAL DIAGNOSES: Urinary tract infection, sepsis, leukocytosis, electrolyte abnormalities, renal insufficiency, hypertension, obesity, gallstone. HISTORY: This is an 88-year-old female with history of hypertension, obesity, admitted from home secondary to pain. The patient was evaluated in the ER and admitted for further management. PHYSICAL EXAMINATION: VITAL SIGNS: Blood pressure /52, respiration 18, pulse 85, temperature 97.2. GENERAL: Elderly female, appears her stated age. NECK: Supple. No mass. LUNGS: Equal breath sounds, few rhonchi. HEART: Regular rate and rhythm with systolic ejection murmur. ABDOMEN: Soft, globular. EXTREMITIES: Positive excoriation. NEUROLOGIC: Limited. HOSPITAL COURSE: The patient was admitted to medical floor, continue IV hydration, antibiotic, IV Maxipime. White count was elevated on admission 18,000. Urine culture E. coli. The patient to continue IV antibiotic. CONDITION ON DISCHARGE: Fair. DISCHARGE INSTRUCTIONS: The patient to continue IV antibiotic for 5 days. We will transfer to a senior living facility. JOB# [id number]
[2018-08-21] MEDS: D5-0.45NS 1,000 ML IV SCH (01:03)
[2018-08-21] MEDS: Albuterol Nebulizer 2.5mg/3mL HHN PRN ×2 (07:18→20:40)
[2018-08-21] MEDS: Heparin Sod 5,000Units/ML 5,000 UNITS/ML VIAL SUBQ SCH ×2 (08:58→21:31)
--- NOTE | 2018-08-21 22:30 | Discharge Summary ---
DATE OF DISCHARGE: 08/21/2018 CHIEF COMPLAINT: Abdominal pain. FINAL DIAGNOSES: Urinary tract infection, sepsis, leukocytosis, electrolyte abnormalities, renal insufficiency, hypertension, obesity, and gallstone. HISTORY: This is an 88-year-old female with history of hypertension, obesity, admitted from home secondary to history of abdominal pain. The patient was diagnosed with sepsis and admitted for further management. PHYSICAL EXAMINATION: VITAL SIGNS: Blood pressure 145/55, respiration 19, pulse 82, temperature 97.2. GENERAL: Elderly female, appears her stated age. NECK: Supple. No mass. LUNGS: Equal breath sounds, few rhonchi. HEART: Regular rate and rhythm with systolic ejection murmur. ABDOMEN: Soft, globular. EXTREMITIES: Positive excoriation. HOSPITAL COURSE: The patient was admitted to medical floor, continued on oxygen and bronchodilator treatments, and IV hydrations. Awaiting placement to a nursing facility. CONDITION AT DISCHARGE: Fair. DISCHARGE INSTRUCTIONS: The patient to continue IV antibiotics. [facility]# [id number]
== END 2018-08-21 23:45 | DRG 871 ==
LOC: ER 10:57 → TELE 15:00
PROVIDERS: ADMIT Internal Medicine; ATTEND Internal Medicine
DX: A41.9 Sepsis, unspecified organism (principal); N17.0 Acute kidney failure with tubular necrosis; E87.1 Hypo-osmolality and hyponatremia; N39.0 Urinary tract infection, site not specified; E87.6 Hypokalemia; I10 Essential (primary) hypertension; K80.80 Other cholelithiasis without obstruction; K80.50 Calculus of bile duct without cholangitis or cholecystitis without obstruction; R73.9 Hyperglycemia, unspecified; E66.9 Obesity, unspecified; E83.39 Other disorders of phosphorus metabolism; Z68.35 Body mass index [BMI] 35.0-35.9, adult
CPT/HCPCS: 36415-UA; 76700-TC; 80048-TC; 80053-TC; 81001-TC; 82150-TC; 83036-90; 83605; 83690-TC; 83735-TC; 83880-TC; 84100-TC; 84443-TC; 85007-TC; 85025-TC; 85610-TC; 87086-90; 90799; 94640; 94760; 96374; 96375; 97530; J0692; J1644; J2270; J2405; J2543; J3475; J3480; J7030; J7613; X3904; Z7610